=== PATIENT | female | born 1985 | race Hispanic/Latino ===

== ENCOUNTER 2020-09-30 00:17 | Day surgery (SDC) | payer OTHER, SELFPAY ==
[2020-09-24 14:28] VITALS: BMI 35.6
--- NOTE | 2020-09-29 13:29 | WPDANESEPPF ---
Anes - Initial Pre Proc Eval Procedure: Operation Date: 09/30/20 11:00 Proposed Procedures p Panniculectomy - Nando Vasquez MD <Stefano Copeland MD - Last Filed: 10/10/20 14:39> Date/Time: 09/29/20 13:29 <Stefaon Copeland MD - Last Filed: 10/10/20 14:39> Surgeon: Nando Vasquez MD <Stefano Copeland MD - Last Filed: 10/10/20 14:39> Pre Op Diagnosis: panniculitis <Stefano Copeland MD - Last Filed: 10/10/20 14:39> Patient Data Age: 35 Gender: F Height: 1.63 m Weight: 94.09 kg <Stefano Copeland MD - Last Filed: 10/10/20 14:39> Allergies Allergy/AdvReac Type Severity Reaction Status Date / Time No Known Allergies Allergy Verified 10/09/20 12:49 <Stefano Copeland MD - Last Filed: 10/10/20 14:39> Home Medications Medication Instructions Recorded Confirmed Type hydrocodone 5 mg-acetaminophen 325 1 tablet PO Q6H PRN #15 tablet 09/17/20 09/30/20 Rx mg tablet ondansetron HCl 4 mg tablet 4 mg PO Q6H PRN #30 tablet 09/17/20 09/30/20 Rx <Stefano Copeland MD - Last Filed: 10/10/20 14:39> Patient hx anesthesia problems: none <Naveed Rinaldi MD - Last Filed: 09/30/20 09:53> Family hx anesthesia problems: none <Naveed Rinaldi MD - Last Filed: 09/30/20 09:53> [facility] Past Medical History Medical History: Medical History (Updated 09/29/20 @ 13:29 by Stefano Copeland MD) Obesity <Stefano Copeland MD - Last Filed: 10/10/20 14:39> Surgical History Surgical History: Surgical History History of section 09/28/2017, 03/23/2016 History of cholecystectomy 03/07/20 <Stefano Copeland MD - Last Filed: 10/10/20 14:39> Family History Family History: Family History Grandparent Diabetes mellitus Grandparent Heart disease <Stefano Copeland MD - Last Filed: 10/10/20 14:39> Social History Social History: Social History Smoking status: Never smoker Alcohol intake: never Substance use: never Substance use type: does not use Spiritual care concerns: No <Stefano Copeland MD - Last Filed: 10/10/20 14:39> Anes - Eval Final PreProcedure Day of Procedure 09/29/20 13:29 <Stefano Copeland MD - Last Filed: 10/10/20 14:39> Patient weight: overweight <Naveed Rinaldi MD - Last Filed: 09/30/20 09:53> Heart: regular rate and rhythm <Naveed Rinaldi MD - Last Filed: 09/30/20 09:53> Lungs: clear to auscultation and normal air movement <Naveed Rinaldi MD - Last Filed: 09/30/20 09:53> Airway: Mallampati scale class II <Naveed Rinaldi MD - Last Filed: 09/30/20 09:53> Neurological: alert and oriented <Naveed Rinaldi MD - Last Filed: 09/30/20 09:53> Last oral intake: >/= 8 hours <Naveed Rinaldi MD - Last Filed: 09/30/20 09:53> ASA classification: II <Naveed Rinaldi MD - Last Filed: 09/30/20 09:53> Emergent: no <Naveed Rinaldi MD - Last Filed: 09/30/20 09:53> Anesthetic plan: proceed <Naveed Rinaldi MD - Last Filed: 09/30/20 09:53> Anesthesia type and monitoring: general LMA and ETT <Naveed Rinaldi MD - Last Filed: 09/30/20 09:53> Informed Consent: The patient's anesthetic plan and its attendant risks and benefits were discussed with the patient/family/POA. Questions were solicited and answers provided to the satisfaction of the patient/family/POA. <Stefano Copeland MD - Last Filed: 10/10/20 14:39>
[2020-09-30] VITALS (9 sets, daily range): BP systolic 107–120; BP diastolic 62–75; PULSE 56–85; RESP 10–16; TEMP 36.2–37; O2SAT 97–100
[2020-09-30] MEDS: LACTATED RINGERS 1,000 ML 30 ML IV CONT ×2 (09:49→12:45)
--- NOTE | 2020-09-30 10:06 | WPDHPUPDATE1 ---
History and Physical Update Update Date/Time: 09/30/20 10:06 History and Physical has been reviewed, including an updated exam of the patient. There are NO changes in the patient's condition. Risks, benefits, and alternatives have been discussed and questions answered. Patient agrees to proceed with procedure.
[2020-09-30 10:19] LABS: Urine Cotinine NEGATIVE
--- NOTE | 2020-09-30 10:23 | W.PM.PROC2 ---
Procedure Note - Detailed Date of Procedure 09/30/20 Pre-op Diagnosis panniculitis Post-op Diagnosis same Procedure Performed Panniculectomy Surgeon Nando Vasquez MD Anesthesia general Findings Tissue removed- 2306 grams Description of Procedure Preoperatively the risks, benefits, alternatives were again discussed. Made sure answered all their questions to their satisfaction. They voiced understanding. Consent obtained. Marked in the holding area with her verification. She stated she does not mind losing the umbilicus. She is fine without it. If necessary please removed. She was taken to the operating room placed supine on the operating room table. Anesthesia was provided by anesthesiology and prepped and draped in a standard sterile fashion. Surgical time-out was taken. A thorough abdominal examination was completed. A stab incision was mainly used tumescent solution. Ten blade used to make the lower incision. I took a wedge resection of the abdomen. I did not undermine. This was tacked into place. I placed bilateral 15 Mihai drains. I then closed in many layers using 1 Stratafix followed by 3-0 Stratafix in a running subcuticular 4-0 Monocryl and tissue glue. Abdominal binder was placed. She was woken taken the PACU without difficulty. All instrument sponge counts were correct at the end of the case. Estimated Blood Loss 30 Drains Yes (Bilateral 15 Mihai) Packing No Pathology none sent Complications No immediate complications Condition stable Disposition PACU
[2020-09-30] MEDS: ceFAZolin 2 GM/D5W 50 ML 2 GM/50 ML BAG IVPB (10:45)
[2020-09-30] MEDS: TRANEXAMIC ACID 1,000MG/ISO100 1,000 MG/100 ML BAG 200 MG IVPB (11:10)
[2020-09-30] MEDS: LACTATED RINGERS IRRIG 1,000 ML, LIDOCAINE HCL 1% LOCAL INJ 50 ML, EPINEPHrine HCL INJ ... INFILTRATE (12:01)
[2020-09-30] MEDS: ONDANSETRON INJ 4 MG/2 ML VIAL IV PUSH ×2 (12:59→19:00)
[2020-09-30] MEDS: fentaNYL CITRATE INJ (*CRX) 100 MCG/2 ML VIAL 25 MCG IV PUSH ×2 (13:07→13:10)
--- NOTE | 2020-09-30 14:11 | PC.NURSE ---
Pt. admitted to room 289 per hospital bed from PACU. Oriented to room and call light. Pt. comfortable at this time. Side rails up x2. Call light within reach.
[2020-09-30] MEDS: MORPHINE SULFATE (*CRX) 2 MG/ML INJ IV PUSH ×2 (14:58→19:20)
[2020-09-30] MEDS: LACTATED RINGERS 1,000 ML 125 ML IV CONT (14:58)
[2020-09-30] MEDS: ENOXAPARIN 40 MG/0.4 ML SYRINGE SUB-Q (19:20)
[2020-10-01 05:30] VITALS: BP 106/66; PULSE 78; RESP 16; TEMP 36.9
[2020-10-01] MEDS: oxyCODONE/ACETAMINOPHEN (*CRX) 5-325 MG TABLET PO ×2 (05:40→10:13)
--- NOTE | 2020-10-01 07:00 | WPDPN ---
Progress Note: A&P Assessment and Plan (1) Panniculitis: Code(s): M79.3 - Panniculitis, unspecified Status: Acute Assessment and Plan: She is doing very well after panniculectomy. Will discharge home. Follow-up. Today we had a lengthy discussion about the care. Went over management. What to monitor for. This was a lengthy open-ended conversation making sure answered all of her questions are satisfaction. She voiced an understanding. Will discharge home. Call with any questions or concerns in the meantime. (2) Weight loss: Code(s): R63.4 - Abnormal weight loss Status: Acute Subjective Date/time seen: 10/01/20 06:45 She states she did well overnight. No fevers or chills. No nausea vomiting. No shortness of breath. No chest pain. No calf tenderness. She had a little nausea with food last night feels much improved today. She has been ambulating without difficulty. Review of Systems Review of Systems: All systems reviewed & are unremarkable except as noted in HPI and below Exam Narrative: Alert and oriented no obvious distress Respiratory is unlabored Abdomen is soft. No signs of infection. No hematoma. No seroma. Drains are becoming serosanguineous. No calf tenderness. Negative Homans. Objective Data Vital Signs Vital Signs: Vital Signs - 24 hr 09/30/20 09:16 09/30/20 12:45 09/30/20 13:00 Temperature 37.0 C 36.3 C L Pulse Rate 65 73 59 L Respiratory Rate 16 14 15 Blood Pressure 120/75 108/66 108/66 Pulse Oximetry 100 100 100 09/30/20 13:15 09/30/20 13:30 09/30/20 13:45 Temperature Pulse Rate 69 59 L 57 L Respiratory Rate 14 10 L 11 L Blood Pressure 108/66 109/66 107/68 Pulse Oximetry 100 97 100 09/30/20 14:00 09/30/20 14:30 09/30/20 19:20 Temperature 36.2 C L 36.8 C 36.8 C Pulse Rate 56 L 62 85 Respiratory Rate 16 16 16 Blood Pressure 107/75 115/62 116/67 Pulse Oximetry 100 10/01/20 05:30 Temperature 36.9 C Pulse Rate 78 Respiratory Rate 16 Blood Pressure 106/66 Pulse Oximetry Intake/Output Intake/Output: Intake & Output 09/28/20 09/29/20 09/30/20 10/01/20 23:59 23:59 23:59 23:59 Intake Total 850 Output Total 770 50 Balance 80 -50 Meds/Results Medications: Active Medications Generic Name Dose Route Start Last Admin Trade Name Freq PRN Reason Stop Dose Admin Docusate Sodium 100 mg 09/30/20 21:00 10/01/20 03:08 Docusate Sodium 100 Mg Capsule PO Not Given Q12HR NEHEMIAS Enoxaparin Sodium 40 mg 09/30/20 20:00 09/30/20 19:20 Enoxaparin 40 Mg/0.4 Ml Syringe SUB-Q 40 mg Q24H NEHEMIAS Administration Morphine Sulfate 2 mg 09/30/20 12:49 09/30/20 19:20 Morphine Sulfate (*Crx) 2 Mg/Ml Inj IV PUSH 2 mg Q2H PRN Administration Pain Ondansetron HCl 4 mg 09/30/20 12:49 09/30/20 19:00 Ondansetron Inj 4 Mg/2 Ml Vial IV PUSH 4 mg Q6H PRN Administration Nausea Oxycodone/Acetaminophen 1 - 2 tablet 09/30/20 12:49 10/01/20 05:40 Oxycodone/Acetaminophen (*Crx) 5-325 Mg Tablet PO 1 tablet Q6H PRN Administration Pain Labs Labs: Laboratory Results - last 24 hr 09/30/20 09:15 Cotinine Negative
--- NOTE | 2020-10-01 07:07 | P.DS_ITS ---
DS: Admitting Diagnosis Admitting Diagnosis Panniculitis DS: Discharge Diagnosis Discharge Diagnosis (1) Panniculitis: Code(s): M79.3 - Panniculitis, unspecified Status: Acute (2) Weight loss: Code(s): R63.4 - Abnormal weight loss Status: Acute DS: Summary Hospital Course Hospital Course: She underwent panniculectomy uneventfully. Postoperatively she has done well. Ambulating. Tolerating diet. Pain controlled. Will discharge home. She will keep us updated with her drain output. Time Spent with Patient Time attestation: Total time spent providing and/or coordinating discharge services: 25 minutes Exam Narrative: Alert and oriented no obvious distress Respiratory is unlabored Abdomen is soft. No signs of infection. No hematoma. No seroma. Drains are becoming serosanguineous. No calf tenderness. Negative Homans. DS: Data Data Completed and Pending Labs on day of discharge: Labs from last 24 hours 09/30/20 09:15 Cotinine Negative Discharge Plan Discharge Attending physician on discharge: Jose Vasquez Discharging Clinician: Jose Vasquez Anticipated Discharge Date/Time: 10/01/20 07:06 Patient Disposition: Home, Self-Care Activity: other - see discharge instructions Diet: as tolerated Discharge Instructions: POST OPERATIVE DISCHARGE INSTRUCTIONS JOSE VASQUEZ M.D. [facility] [address] [place] [address] * No driving for 24 hours after anesthesia and while you are taking pain medication. * Take all prescribed medication as directed * Diet as tolerated. * No lifting or activity that raises blood pressure for 48 hours. * Regular walking / ambulation. * No showering until directed to. Once you shower do not take pain medication before showering as the combination of medication and heat may cause you to feel dizzy or pass out. * No pools or tubs for 2 weeks. * Call with any questions or concerns. * Dressing Care: May shower; however, keep drain sites clean / dry. If you have any questions or concerns, please call the office . If it is after hours you will be directed to the quality control technician exchange. Shortness of breath, chest pain, or other medical emergency dial 911 / proceed to the Emergency Room. Patient Instructions: [facility] Drain Care (GEN) Stand Alone Forms: General Discharge Instructions Follow-up/Referrals: Jose Vasquez MD [Physician] - 2 Weeks Discharge Medications: Continued ondansetron HCl [Zofran] 4 mg tablet 4 mg PO Q6H PRN (Reason: nausea and vomiting) Qty: 30 RF: 0 hydrocodone-acetaminophen 5-325 mg tablet 1 tablet PO Q6H PRN (Reason: pain) Qty: 15 RF: 0 Date of admission: 09/30/20 12:49 Primary Care Provider: Raimundo,Stefan Carmona Admitting Provider: Jose Vasquez Attending physician on admission: Jose Vasquez Condition: Stable
[2020-10-01 09:11] VITALS: BP 111/74; PULSE 64; RESP 16; TEMP 36.3; O2SAT 100
[2020-10-01] MEDS: DOCUSATE SODIUM 100 MG CAPSULE PO (10:13)
== END 2020-10-01 10:30 | disposition home or self-care (01) ==
LOC: ANHSURGERY 12:49 → ANHOB2 10-01 07:07
PROVIDERS: PCP Family Medicine; Visit Provider Surgery Plastic and Reconstructive Surgery
PROC: 0JB80ZZ Excision of Abdomen Subcutaneous Tissue and Fascia, Open Approach (ICD-10-PCS; CPT 15830; principal; 2020-09-30 11:00)
DX: M79.3 Panniculitis, unspecified (principal); E66.9 Obesity, unspecified; Z68.35 Body mass index [BMI] 35.0-35.9, adult
CPT/HCPCS: 15830; 80307; 99199; A9270; J0171; J0690; J1100; J1650; J2250; J2270; J2370; J2405; J2704; J3010; J7120

== ENCOUNTER 2024-11-06 09:02 | Outpatient (CLI) | payer OTHER, SELFPAY ==
--- OUTSIDE RECORDS SUMMARY | 2024-11-06 09:33 | XMS_ITS | Clinical Summary ---
Author Organization [facility] Address [address] Attn: Epic Prelude ADT ERIN LUCIANO [address] Care Team Providers Care Blood Bank Booking Clerk Name Role Phone Unavailable Primary Care Provider Unavailabl e Medications metFORMIN (GLUCOPHAGE) 500 mg tablet Take 1 Tablet (500 mg) by mouth daily. 30 Tablet 3 03/01/2022 3:12 PM LENDING ADVISOR 2 Active cephALEXin (KEFLEX) 500 mg capsule Take 1 Capsule by mouth 3 times per day for 7 days 21 Capsule 09/04/2022 11:30 AM CDT 3 Active spironolactone (ALDACTONE) 100 mg tablet Take 1 Tablet (100 mg) by mouth 2 times daily. 180 Tablet 1 03/08/2024 2:37 PM LENDING ADVISOR 4 Active tretinoin (RETIN-A) 0.05 % Cream Apply topically nightly at bedtime as directed 45 Gram 1 11/30/2023 9:54 AM CDT 4 Active metFORMIN (GLUCOPHAGE) 500 mg tablet Take 2 tablets (1,000 mg total) by mouth 2 (two) times daily with meals. 360 Tablet 3 09/09/2024 1:06 PM CDT 4 Active escitalopram oxalate (LEXAPRO) 20 mg tablet Take 1 tablet (20 mg total) by mouth daily. 90 Tablet 3 10/10/2024 3:13 PM CDT 4 Active mupirocin (BACTROBAN) 2 % Ointment Apply to affected area(s) 3 times a day for 7 days 22 Gram 03/24/2024 11:51 AM LENDING ADVISOR 5 Active spironolactone (ALDACTONE) 100 mg tablet Take 1 tablet (100 mg total) by mouth 2 (two) times daily. 180 Tablet 06/08/2024 12:59 PM CDT 5 Active tretinoin (RETIN-A) 0.05 % Cream Apply topically nightly at bedtime. 45 Gram 1 06/12/2024 11:39 AM CDT 5 Active spironolactone (ALDACTONE) 100 mg tablet Take 1 tablet (100 mg total) by mouth 2 (two) times daily. 180 Tablet 3 09/07/2024 11:33 AM CDT 5 Active Social History Tobacco Use Types Packs/Day Years Used Date Smoking Tobacco: Never Assessed Comments Unknown Sex and Gender Information Value Date Recorded Sex Assigned at Not on file Legal Sex Female 3:24 PM CDT Gender Identity Not on file Sexual Orientation Not on file Plan of Treatment Health Maintenance Due Date Last Done Comments DTAP/TDAP/TD VACCINES (1 - Tdap) 05/14/2006 HEPATITIS B VACCINES (1 of 3 - 19+ 3-dose series) 08/2006 HPV/Cotest (21-29) 05/14/2008 HPV VACCINES (1 - 3-dose SCDM series) 05/14/2014 CERVICAL CANCER SCREENING 05/14/2017 HPV/Cotest (30-65) 05/14/2017 PAP SMEAR 05/14/2017 INFLUENZA VACCINE (#1) 2024 Insurance RX [employer] (INTERNAL) [facility]
[2024-11-06 10:12] LABS: Alanine Aminotransferase 24 U/L (6-35); Albumin Level 4.0 g/dL (3.5-5.1); Alkaline Phosphatase 58 U/L (38-126); Anion Gap 5 mmol/L (4-12); Aspartate Amino Transferase 37 U/L (14-36); Bilirubin,Total 0.4 mg/dL (0.2-1.3); Blood Urea Nitrogen 15 mg/dL (7-17); Calcium 8.7 mg/dL (8.4-10.2); Carbon Dioxide 31 mmol/L (22-30); Chloride 99 mmol/L (98-107); Estimated Glomerular Filt Rate > 60; Glucose 80 mg/dL (65-110); Iron 100 ug/dL (37-170); Potassium 4.2 mmol/L (3.4-5.0); Sodium 135 mmol/L (137-145); Total Protein 7.3 g/dL (6.3-8.2)
[2024-11-06 10:19] LABS: Prealbumin 27.7 mg/dL (17.6-36.0)
[2024-11-10 02:07] LABS: Vit. B1, Whole Blood 114.7 nmol/L (66.5-200.0)
== END 2024-11-06 09:03 | disposition home or self-care (01) ==
LOC: ANHLAB 09:05
PROVIDERS: PCP Family Medicine; Visit Provider Surgery Plastic and Reconstructive Surgery
DX: R63.4 Abnormal weight loss (principal)
CPT/HCPCS: 36415; 80053; 83540; 84134; 84425

== ENCOUNTER 2025-01-18 00:38 | Day surgery (SDC) | payer OTHER, SELFPAY ==
[2025-01-15 17:54] VITALS: BMI 36.8
--- NOTE | 2025-01-15 17:57 | PC.NURSE ---
[facility] has started construction of its new state of the art ER which will open Spring 2026. With this, we anticipate parking may be a challenge for some our surgical patients and families. Parking spaces are limited but are available for all Surgical, obstetrics, and ER patients sharing this lot. If you arrive and find you are having a hard time finding a parking space, please note that we understand the challenges, please drive around the hospital and park near Hospital Entrance 1. When you enter this entrance, you can ask a volunteer to direct or take you back to the surgical waiting area to check in. We appreciate everyone?s understanding of these expected challenges while we build for your future. Report to the Outpatient Waiting Room, entrance under the green pavilion located off [address], at time __6:00 AM on date ___[phone]____. Planned Procedure Time: ____7:30AM____.? Time changes happen often and if your time is changed the preop area will call you the afternoon before. - You and your visitor will be asked to self-screen and do not enter if you have any COVID symptoms. Please call surgeon if you need to reschedule. - A mask is optional within the hospital at this time. Patients may have clear liquids (water, carbonated beverages, clear teas, apple juice) until 3 hours prior to surgery with a maximum of 20 ounces. - No food from midnight until time of surgery and no smoking, or chewing tobacco (or any form of nicotine). No chewing gum, candy or mints. Take only the following medications with a SIP of water on the morning of surgery: __BIRTH CONTROL DO NOT STOP ANY OF YOUR OTHER PRESCRIPTION MEDICATIONS PRIOR TO SURGERY EXCEPT THE FOLLOWING/ YOU MAY TAKE YOUR LEXAPRO THE EVENING BEFORE. Hold all vitamins and supplements for 3 days per anesthesiologist. N/A Medications to discontinue per physician PLEASE HOLD YOUR METFORMIN AND ALDACTONE THAT YOU TAKE FOR PCOS THE MORNING OF SURGERY. Please no make-up, nail syrian, hairspray, perfume, deodorant, or body powder the day of surgery.? No jewelry (including any body piercings) or valuables the day of surgery, leave them at home.? Please take a shower or bath the night before, or the morning of, surgery with an antibacterial soap.? Wear comfortable, loose fitting clothing.? - Jewelry must be removed prior to entering the operating room.? Rings and piercings that are not removed may be cut off. - The hospital will not accept responsibility for valuables.? - Please leave all valuables, including medications, at home the day of surgery. If you are going home after surgery, a licensed funeral driver must drive you home.? - NO public transportation without another adult if you receive anesthesia. - We recommend that an adult stay with you for 24 hours following discharge. - We also recommend that you do not drive, make important decision, drink alcoholic beverages, or take any drugs that were not prescribed by your health care provider for at least 24 hours after your discharge time. Follow any additional instructions given to you from your surgeon. Telephone instructions given to PATIENT/GREGOR and asked if any additional questions and then verbalized understanding. Patient advised to call surgeon office or pre surgery nurse liaison [phone] if any additional questions.
[2025-01-18] VITALS (12 sets, daily range): BP systolic 102–162; BP diastolic 60–90; PULSE 67–81; RESP 12–18; TEMP 36.6–36.9; O2SAT 95–100
[2025-01-18] MEDS: LACTATED RINGERS 1,000 ML 30 ML IV CONT ×2 (06:55→10:25)
[2025-01-18] MEDS: TRANEXAMIC ACID 1,000MG/ISO100 1,000 MG/100 ML BAG 200 MG IVPB (06:56)
--- NOTE | 2025-01-18 06:56 | WPDANESEPPF ---
Anes - Initial Pre Proc Eval Procedure: Operation Date: 01/18/25 07:30 Proposed Procedures p Bilateral Brachioplasty with Liposuction - Nando Vasquez MD Date/Time: 01/18/25 06:56 Surgeon: Nando Vasquez MD Pre Op Diagnosis: Skin Laxity Patient Data Age: 39 Gender: F Height: 1.63 m Weight: 97.52 kg Allergies Allergy/AdvReac Type Severity Reaction Status Date / Time No Known Allergies Allergy Verified 01/15/25 17:53 Home Medications ?Medication ?Instructions ?Recorded ?Confirmed ?Type escitalopram oxalate 10 mg tablet 20 mg PO HS 11/01/23 01/15/25 History metformin 500 mg tablet 1,000 mg PO BID 11/01/23 01/15/25 History spironolactone 100 mg tablet 100 mg PO BID #180 tabs 11/01/23 01/15/25 Rx norethindrone 1 mg-ethinyl 1 tablet PO DAILY 01/15/25 01/15/25 History estradiol 20 mcg (21)-iron 75 mg (7) tablet (Janet Fe 02/26 (28)) Laboratory Tests 01/18/25 06:38 Cotinine Pending Patient hx anesthesia problems: none Family hx anesthesia problems: none Results Review: All pre-operative results and documents have been reviewed as part of the pre-operative evaluation. [facility] Past Medical History Medical History (Updated 11/01/23 @ 11:14 by Arlen Berger MD) Obesity Surgical History Surgical History (Updated 11/01/23 @ 10:42 by Cathy Dill MA) S/P panniculectomy 2020 History of cholecystectomy 03/07/20 History of section 09/28/2017, 03/23/2016 Family History Family History Grandparent Diabetes mellitus Grandparent Heart disease Social History Social History (Updated 11/01/23 @ 10:43 by Cathy Dill MA) Smoking status: Never smoker Alcohol intake: never Substance use: never Substance use type: does not use Lack of Transportation: No Lack of Food: Never True Current Housing: I Have Housing Concerned About Future Housing: No Difficulty Paying Gas/Electric Bills: No Difficulty Paying for Meds: No Currently Unemployed: No Living arrangements: with family Gender identity (if verbalized by the patient): Female Spiritual care concerns: No Anes - Eval Final PreProcedure Day of Procedure 01/18/25 06:56 Patient weight: obese Heart: regular rate and rhythm Lungs: clear to auscultation Airway: Mallampati scale class II Neurological: alert and oriented Last oral intake: >/= 8 hours ASA classification: II Emergent: no Anesthetic plan: proceed Anesthesia type and monitoring: general ETT and standard monitoring Results Review: All pre-operative results and documents have been reviewed as part of the pre-operative evaluation. Informed Consent: The patient's anesthetic plan and its attendant risks and benefits were discussed with the patient/family/POA. Questions were solicited and answers provided to the satisfaction of the patient/family/POA.
--- NOTE | 2025-01-18 07:15 | WPDHPUPDATE1 ---
History and Physical Update Update Date/Time: 01/18/25 07:15 History and Physical has been reviewed, including an updated exam of the patient. There are NO changes in the patient's condition. Risks, benefits, and alternatives have been discussed and questions answered. Patient agrees to proceed with procedure.
--- NOTE | 2025-01-18 07:16 | W.PM.PROC2 ---
Procedure Note - Detailed Date of Procedure 01/18/25 Pre-op Diagnosis Skin Laxity Post-op Diagnosis Same Procedure Performed Bilateral brachioplasty Surgeon Nando Vasquez MD Anesthesia General Findings Lipoaspirate: 1,400 cc Description of Procedure Here for the above procedures. Preoperatively risks, benefits, alternatives were discussed again today in extensive detail. I want to be very realistic about the risks involved as well as expectations. Made sure answered all of their questions to satisfaction. They voiced a clear understanding. Consent obtained. Patient was marked in the preoperative holding area with their verification. Taken to the operating placed supine on the operating table. Anesthesia was provided by anesthesiology. Prepped and draped in a standard sterile fashion. Surgical time-out was taken. Stab incisions were made and I tumesced with a tumescent solution. Once adequate time for hemostasis suction lipectomy was with a 4 mm basket cannula based on S.A.F.E. technique. This was completed based on preoperative planning, intraoperative observation, and rolling pinch test which was in full agreement. I completely de-fatted the planned resection area and a strip avulsion technique was completed. Starting proximal to distal a 10 blade was used to excise the intervening skin and this was tacked as we proceed to ensure good closure. This was closed using a 2-0 Quill, 3-0 strata fix, running subcuticular 4-0 Monocryl, and tissue glue / Brijjits. Dressings were placed. Tolerated the procedure well. Taken to the PACU without difficulty. All instrument sponge counts were correct at the end of the case. Estimated Blood Loss 30 Drains No Packing No Pathology None sent Complications No immediate complications Condition Stable Disposition PACU
[2025-01-18] MEDS: ceFAZolin 2 GM in SODIUM CHLORIDE 0.9% IV 50 ML 100 ML IVPB (07:28)
[2025-01-18 08:06] LABS: BEDSIDEPREGUCG Negative (Negative)
[2025-01-18] MEDS: fentaNYL CITRATE INJ (*CRX) 100 MCG/2 ML VIAL 25 MCG IV PUSH ×2 (11:28→11:31)
[2025-01-18] MEDS: oxyCODONE HCL (*CRX) 5 MG TAB IR PO (12:05)
== END 2025-01-18 13:48 | disposition home or self-care (01) ==
PROVIDERS: PCP Family Medicine; Visit Provider Surgery Plastic and Reconstructive Surgery
PROC: (CPT 15836; principal; 2025-01-18 07:30)
DX: Z41.1 Encounter for cosmetic surgery (principal); L57.4 Cutis laxa senilis
CPT/HCPCS: 15836; 15878; 80307; J0690; A9270; J0166; J0330; J1100; J1171; J1200; J2003; J2250; J2405; J2704; J3010; J3290; J7120